=== PATIENT | male | born 1995 ===

== ENCOUNTER → 2023-08-20 10:39 | Outpatient (REF) | payer OTHER, SELFPAY | LOC: RAD 10:39 | PROVIDERS: ATTENDING PHYSICIAN Specialist | DX: N20.0 Calculus of kidney (principal) | CPT/HCPCS: 74018 ==

== ENCOUNTER 2023-09-20 06:11 | Day surgery (SDC) | payer OTHER, SELFPAY ==
[2023-09-20] VITALS (9 sets, daily range): BP systolic 108–136; BP diastolic 61–77; BMI 32.0
[2023-09-20] MEDS: NORMOSOL-R 1000 IV (08:15)
== END 2023-09-20 11:24 | disposition home or self-care (01) ==
LOC: SDS 06:11
PROVIDERS: ATTENDING PHYSICIAN Specialist
DX: N20.0 Calculus of kidney (principal); N20.1 Calculus of ureter
CPT/HCPCS: 50590